=== PATIENT | female | born 1985 | race Asian ===

== ENCOUNTER → 2019-09-03 | Outpatient (CLI) | payer OTHER ==
--- NOTE | 2019-09-03 12:10 | Diagnostic Imaging Report ---
Abdomen, 1 view. History: Kidney stones. Findings: A faint 3 mm calcific density is projected over the right kidney. Air is scattered throughout nondilated small and large bowel. Intrauterine device is noted in the pelvis. The osseous structures are intact. IMPRESSION: Possible small right renal calculus. Signed by: John Gorman on 09/03/2019 12:07 PM
== END ==
LOC: RAD 11:10
PROVIDERS: ATTEND Urology
DX: N20.0 Calculus of kidney (principal)
CPT/HCPCS: 74018